=== PATIENT | female | born 1950 | race American Indian/Alaskan Native ===

== ENCOUNTER 2017-08-25 08:02 | Day surgery (SDC) | payer BC ==
[2017-08-25 08:48] VITALS: TEMP 98
[2017-08-25] MEDS ORDERED: Propofol 10 mg/ml Inj (20 ML) ONE (09:35)
--- NOTE | 2017-08-25 09:42 | CP.SDSHP ---
Same Day Surgery H & P - History Proposed Procedure: colonoscopy - Previous Medical/Surgical History Previous Surgical History: L hip replacement Knee surgery - Allergies Allergies: Allergies acetaminophen [From Percocet] Allergy (Intermediate, Verified 08/25/17 08:39) NAUSEA tramadol Adverse Reaction (Intermediate, Verified 08/25/17 08:39) NAUSEA oxycodone HCl [From Percocet] Adverse Reaction (Mild, Verified 08/25/17 08:39) NAUSEA - Physical Exam Vital Signs: Vital Signs 08/25/17 08:40 Temperature 98 F Pulse Rate 80 Respiratory 20 Rate Blood Pressure 124/81 O2 Sat by Pulse 100 Oximetry - Date & Time Date: 08/25/17 Time: 09:36 Short Stay Discharge - Short Stay Discharge Admitting Diagnosis/Reason for Visit: ENCOUNTER FOR SCREENING FOR MALIGNANT NEOPLASM OF Disposition: HOME/ ROUTINE
[2017-08-25 10:24] VITALS: O2SAT 99
[2017-08-25 10:51] VITALS: BP 136/67; PULSE 70; RESP 14
== END 2017-08-25 11:10 | disposition home or self-care (01) ==
LOC: C.ENDO 08:02
PROVIDERS: ATTEND Colon & Rectal Surgery
DX: Z12.11 Encounter for screening for malignant neoplasm of colon (principal); K57.30 Diverticulosis of large intestine without perforation or abscess without bleeding; Z88.5 Allergy status to narcotic agent; Z96.642 Presence of left artificial hip joint; K64.8 Other hemorrhoids
CPT/HCPCS: 45378; J2001; J2704